=== PATIENT | male | born 1980 | race Two or more races ===

== ENCOUNTER 2020-04-23 01:17 | Inpatient (IN) | payer MEDICAID ==
[~2020-04-23] VITALS: Ht 170.2 cm; Wt 83.0 kg
[2020-04-23 03:55] LABS: Basophils # (auto) 0 10 ^3/uL (0-0.2); Basophils % (auto) 0.3 % (0.0-2.0); Eosinophils # (auto) 0.1 10 ^3/uL (0-0.8); Hematocrit 40.8 % (41.0-53.0); Hemoglobin 13.9 g/dL (13.5-17.5); Lymphocytes # (auto) 1.1 10 ^3/uL (0.4-5.4); Lymphocytes % (auto) 9.4 % (10.0-50.0); Mean Corpuscular Hemoglobin 29.6 pg (28.0-32.0); Monocytes # (auto) 0.6 10 ^3/uL (0-1.3); Monocytes % (auto) 4.6 % (0.0-12.0); Neutrophils # (auto) 10.4 10 ^3/uL (1.6-8.6); Neutrophils % (auto) 84.7 % (37.0-80.0); Nucleated Red Blood Cells % 0.1 %; Platelet Count (auto) 303 10^3/uL (140-450); Red Blood Cells 4.69 10^6/uL (4.5-5.90); Red Cell Distribution Width 14.9 % (11.8-14.3); White Blood Cell 12.2 10^3/uL (4.4-10.8)
[2020-04-23 04:06] LABS: Albumin 3.7 g/dL (3.4-5.0); Calcium 8.9 mg/dL (8.5-10.1); Potassium 3.4 mmol/L (3.5-5.1)
[2020-04-23 04:10] LABS: BUN/Creatinine Ratio 17.1; Bilirubin, Total 1.2 mg/dL (0.2-1.0); Total Protein 7.5 g/dL (6.4-8.2)
[2020-04-23 05:32] LABS: Urine WBC None Seen /hpf (0 - 3)
[2020-04-23 05:44] LABS: Urine Bacteria NONE SEEN /hpf (None Seen); Urine Blood Negative /uL (Negative); Urine Specific Gravity 1.008 (1.001-1.035)
[2020-04-23] MEDS ORDERED: SODIUM CHLORIDE 0.9% 1,000 ML IV ONE ×2 (05:45→12:45)
[2020-04-23] MEDS ORDERED: IOHEXOL 300 MG/ML 100ML BOTTLE IJ ONE (05:48)
[2020-04-23] MEDS ORDERED: MORPHINE SULF INJ 2 MG/ML SYRINGE 1ML IV PRN (12:45)
[2020-04-23] MEDS ORDERED: LORazepam 2MG/ML-1ML VIAL IV PRN (12:45)
[2020-04-23] MEDS ORDERED: LABETALOL HCL 5 MG/ML 4ML SYRINGE IV PRN (12:45)
[2020-04-23] MEDS ORDERED: NITROGLYCERIN 0.4 MG SL TAB SL PRN (12:45)
[2020-04-23] MEDS ORDERED: ONDANSETRON HCL 4 MG/2 ML VIAL IV PRN (12:45)
[2020-04-23] MEDS ORDERED: POTASSIUM CHLORIDE 40 MEQ, LIDOCAINE 1% (LOCAL ANESTH.) 4 ML in SODIUM CHL 0.9% 250 ML IV ONE (12:45)
[2020-04-23] MEDS: cefTRIAXone 1GM/50ML D5W 50 ML IV SCH (13:07)
[2020-04-23] MEDS: SODIUM CHLORIDE 0.9% 1,000 ML IV SCH ×3 (13:45→22:41)
[2020-04-23 13:52] LABS: INR 1.04 (0.9-1.15)
[2020-04-23 14:15] VITALS: BP 135/95
[2020-04-23 14:20] LABS: INR 1.03 (0.9-1.15); Partial Thromboplastin Time 25.2 sec (23.0-31.2)
[2020-04-23] MEDS: metroNIDAZOLE 500MG/100ML 100 ML IV SCH ×2 (15:53→16:40)
[2020-04-23 16:00] VITALS: BP 138/67
[2020-04-23 17:00] VITALS: BP 143/86
[2020-04-23 23:03] VITALS: BP 136/90
[2020-04-24] MEDS: metroNIDAZOLE 500MG/100ML 100 ML IV SCH ×3 (00:53→17:24)
[2020-04-24 04:39] VITALS: BP 131/88
[2020-04-24] MEDS: SODIUM CHLORIDE 0.9% 1,000 ML IV SCH (04:54)
[2020-04-24 05:40] LABS: Basophils # (auto) 0 10 ^3/uL (0-0.2); Basophils % (auto) 0.6 % (0.0-2.0); Eosinophils # (auto) 0.2 10 ^3/uL (0-0.8); Eosinophils % (auto) 3.6 % (0.0-7.0); Hematocrit 40.2 % (41.0-53.0); Hemoglobin 13.8 g/dL (13.5-17.5); Lymphocytes # (auto) 1.4 10 ^3/uL (0.4-5.4); Lymphocytes % (auto) 24.2 % (10.0-50.0); Mean Corpuscular Hemoglobin 30.2 pg (28.0-32.0); Mean Corpuscular Hgb Conc. 34.4 g/dL (32.0-36.0); Mean Corpuscular Volume 87.8 fL (80.0-100.0); Monocytes # (auto) 0.4 10 ^3/uL (0-1.3); Monocytes % (auto) 7.1 % (0.0-12.0); Neutrophils # (auto) 3.6 10 ^3/uL (1.6-8.6); Neutrophils % (auto) 64.5 % (37.0-80.0); Nucleated Red Blood Cells % 0.2 %; Platelet Count (auto) 252 10^3/uL (140-450); Red Blood Cells 4.58 10^6/uL (4.5-5.90); Red Cell Distribution Width 14.8 % (11.8-14.3); White Blood Cell 5.6 10^3/uL (4.4-10.8)
[2020-04-24 05:47] LABS: Albumin 3.5 g/dL (3.4-5.0); Calcium 8.5 mg/dL (8.5-10.1); Potassium 3.8 mmol/L (3.5-5.1)
[2020-04-24 05:51] LABS: BUN/Creatinine Ratio 10.1; Bilirubin, Total 2.2 mg/dL (0.2-1.0)
[2020-04-24] MEDS: cefTRIAXone 1GM/50ML D5W 50 ML IV SCH (08:21)
[2020-04-24] MEDS ORDERED: BUPIVACAINE 0.5% MPF INJ 30ML SDV IJ ONE (08:51)
[2020-04-24] MEDS ORDERED: LIDOCAINE W/ EPINEPHRINE 1% 20ML VIAL ONE (08:51)
[2020-04-24] MEDS ORDERED: SUCCINYLCHOLINE CHLORIDE 20 MG/ML 10ML VIAL IV ONE (08:54)
[2020-04-24 09:00] VITALS: BP 124/78
[2020-04-24] MEDS ORDERED: ROCURONIUM 10MG/ML 10ML VIAL IV ONE (09:14)
[2020-04-24] MEDS ORDERED: fentaNYL CITRATE 5 ML ONE (09:14)
[2020-04-24] MEDS ORDERED: MIDAZOLAM HCL 1MG/1ML-2 ML VIAL ONE (09:14)
[2020-04-24] MEDS ORDERED: LIDOCAINE 2% (LOCAL ANESTH.) PF 5ml SDV ONE (09:15)
[2020-04-24] MEDS ORDERED: PROPOFOL 10 MG/ML 20 ML IV ONE (09:15)
[2020-04-24] MEDS ORDERED: ENOXAPARIN SOD 40 MG/0.4 ML SYRINGE SC SCH (10:00)
[2020-04-24] MEDS ORDERED: ONDANSETRON HCL 4 MG/2 ML VIAL IV PRN (10:45)
[2020-04-24] MEDS ORDERED: HYDROmorphone HCL 2 MG/ML VL IV PRN (10:45)
[2020-04-24] MEDS: D5W/SOD CHL 0.45%/KCL 20MEQ 1,000 ML IV SCH ×2 (11:26→21:04)
[2020-04-24] MEDS ORDERED: HYDROmorphone HCL 2 MG/ML VL IV ONE (12:00)
[2020-04-24 13:00] VITALS: BP 128/74
[2020-04-24 16:48] VITALS: BP 141/78
[2020-04-24] MEDS: PANTOPRAZOLE 40 MG/10 ML VIAL INJ IV SCH (17:24)
[2020-04-24] MEDS: MORPHINE SULF INJ 2 MG/ML SYRINGE 1ML IV PRN (20:55)
[2020-04-24 22:00] VITALS: BP 127/86
[2020-04-25] MEDS: metroNIDAZOLE 500MG/100ML 100 ML IV SCH ×3 (00:40→17:08)
[2020-04-25] MEDS: MORPHINE SULF INJ 2 MG/ML SYRINGE 1ML IV PRN (01:51)
[2020-04-25 05:00] VITALS: BP 116/60
[2020-04-25] MEDS: D5W/SOD CHL 0.45%/KCL 20MEQ 1,000 ML IV SCH ×2 (06:30→17:07)
[2020-04-25 06:45] LABS: Basophils # (auto) 0 10 ^3/uL (0-0.2); Basophils % (auto) 0.4 % (0.0-2.0); Eosinophils # (auto) 0.1 10 ^3/uL (0-0.8); Eosinophils % (auto) 1.5 % (0.0-7.0); Hematocrit 39.4 % (41.0-53.0); Hemoglobin 13.5 g/dL (13.5-17.5); Lymphocytes # (auto) 1.4 10 ^3/uL (0.4-5.4); Lymphocytes % (auto) 16.1 % (10.0-50.0); Mean Corpuscular Hemoglobin 30.1 pg (28.0-32.0); Mean Corpuscular Hgb Conc. 34.2 g/dL (32.0-36.0); Monocytes # (auto) 0.5 10 ^3/uL (0-1.3); Neutrophils # (auto) 6.5 10 ^3/uL (1.6-8.6); Nucleated Red Blood Cells % 0.2 %; Platelet Count (auto) 244 10^3/uL (140-450); Red Blood Cells 4.48 10^6/uL (4.5-5.90); White Blood Cell 8.5 10^3/uL (4.4-10.8)
[2020-04-25 07:11] LABS: Potassium 3.5 mmol/L (3.5-5.1)
[2020-04-25 07:17] LABS: Albumin 3.1 g/dL (3.4-5.0); BUN/Creatinine Ratio 8.2; Calcium 8.1 mg/dL (8.5-10.1); Magnesium 2.1 mg/dL (1.6-2.6)
[2020-04-25 07:18] LABS: Bilirubin, Total 1.4 mg/dL (0.2-1.0); Total Protein 6.6 g/dL (6.4-8.2)
[2020-04-25] MEDS: cefTRIAXone 1GM/50ML D5W 50 ML IV SCH (08:51)
[2020-04-25] MEDS: PANTOPRAZOLE 40 MG/10 ML VIAL INJ IV SCH (08:58)
[2020-04-25 13:00] VITALS: BP 148/64
[2020-04-25 16:00] VITALS: BP 112/66
[2020-04-25 22:00] VITALS: BP 136/87
[2020-04-26] MEDS: metroNIDAZOLE 500MG/100ML 100 ML IV SCH ×2 (01:00→11:10)
[2020-04-26] MEDS: D5W/SOD CHL 0.45%/KCL 20MEQ 1,000 ML IV SCH (02:03)
[2020-04-26 05:00] VITALS: BP 111/72
[2020-04-26 06:13] LABS: Albumin 3.3 g/dL (3.4-5.0); Bilirubin, Direct 0.3 mg/dL (0-0.2); Potassium 3.5 mmol/L (3.5-5.1)
[2020-04-26 06:15] LABS: Bilirubin, Total 1.3 mg/dL (0.2-1.0); Total Protein 6.9 g/dL (6.4-8.2)
[2020-04-26 09:00] VITALS: BP 128/73
[2020-04-26] MEDS: PANTOPRAZOLE 40 MG/10 ML VIAL INJ IV SCH (09:18)
[2020-04-26] MEDS: cefTRIAXone 1GM/50ML D5W 50 ML IV SCH (09:19)
[2020-04-26] MEDS ORDERED: METR500T PO (10:09)
[2020-04-26] MEDS ORDERED: LEVO500T31 PO (10:09)
[2020-04-26 13:00] VITALS: BP 131/73
[2020-04-26 17:00] VITALS: BP 144/88
== END 2020-04-26 17:51 | disposition home or self-care (01) | DRG 263 ==
LOC: EDBD 01:17 → ER 01:20 → OVERFLOW 01:21 → CENTRAL 14:20
PROVIDERS: ADMIT Family Medicine; ATTEND Internal Medicine
PROC: 3E013GC Introduction of Other Therapeutic Substance into Subcutaneous Tissue, Percutaneous Approach (ICD-10-PCS; 2020-04-24)
PROC: 0FT44ZZ Resection of Gallbladder, Percutaneous Endoscopic Approach (ICD-10-PCS; principal; 2020-04-24 09:19)
DX: K80.00 Calculus of gallbladder with acute cholecystitis without obstruction (principal); E87.6 Hypokalemia; R65.10 Systemic inflammatory response syndrome (SIRS) of non-infectious origin without acute organ dysfunction; F10.10 Alcohol abuse, uncomplicated; F17.210 Nicotine dependence, cigarettes, uncomplicated; E66.9 Obesity, unspecified; Z20.822 Contact with and (suspected) exposure to COVID-19; Z71.41 Alcohol abuse counseling and surveillance of alcoholic; Z83.3 Family history of diabetes mellitus; Z68.28 Body mass index [BMI] 28.0-28.9, adult
CPT/HCPCS: 36415; 71045; 74177; 76705; 80053; 80076; 81001; 83690; 83735; 84132; 84443; 84484; 85025; 85610; 85730; 86850; 86900; 86901; 87426; 96361; 96365; C9113; G0378; J0330; J0696; J2001; J2250; J2704; J3490